=== PATIENT | male | born 1995 | race Caucasian/White ===

== ENCOUNTER 2024-02-27 09:43 | Emergency (ER) | payer BC, SELFPAY ==
[2024-02-27 09:46] VITALS: BP 150/93
[2024-02-27 10:15] VITALS: BMI 28.7
[2024-02-27] MEDS: TORADOL 30 MG IM (10:39)
--- NOTE | 2024-02-27 11:07 | ED.GENMED ---
History of Present Illness
General
Chief Complaint: Back Pain
Source: patient and spouse
Exam Limitations: none
Time Seen by Provider: 02/27/24 10:16
Nursing documentation reviewed up to this point in time: agreed with
History of Present Illness
History of Present Illness:
28-year-old male without significant past medical history presenting to the emergency department with hip but of discomfort mainly to the left side rating to the left knee worse with movement and positioning worsening over the past 3 days. Seem to
be after he lifted a few days ago. Initially had discomfort to the right hip but then transferred to the left side. Tried resting for a few days without any improvement. He went to an urgent care and received Flexeril and a Medrol Dosepak
but has not had any significant improvement. Bowel or bladder dysfunction no fever no numbness or weakness.
Review of Systems
Review of Systems
Allergies reviewed?: Yes
All Other Systems: ROS reviewed and negative except as documented in HPI and ROS
Phy Exam
Physical Exam
Physical Exam:
GENERAL: Alert , in no apparent distress
EYE: pupils equal and reactive
NECK: Supple, no significant adenopathy.
ENT: o/p clr, mmm.
CARDIAC: Regular rate and rhythm .
LUNGS: Clear breath sounds bilaterally, no acute respiratory distress, no wheezes/rales/rhonchi
ABDOMEN: Soft, without focal tenderness, no r/g, no cvat
NEUROLOGICAL: Alert and oriented, no focal neuro deficits
SKIN: Warm and dry, skin intact.
MUSCULOSKELETAL: No edema, well perfused.
PSYCH: Normal and appropriate interaction.
Course
Orders/Labs/Results
Orders:
Orders
02/27/24 10:35
Ketorolac [Toradol] 30 mg IM NOW STA
Hip, Left 2-3 Views [CR Hip - LT w/wo Pel 2-3 Vw*] Urgent
Comment:
Reason For Exam: hip pain
Include a pelvis x-ray?: Yes
Lumbar Spine, 2 or 3 View [CR Lumbar Spine 2 Or 3 Views] Urgent
Comment:
Reason For Exam: low back hip pain
02/27/24 11:55
Oxycodone/Acetaminophen [Percocet 5/325] 2 tablet PO NOW STA
Vital Signs
Initial and Last Documented VS:
Initial Vital Signs
Temp Pulse Resp BP Pulse Ox
98.3 F 87 16 150/93 98
02/27/24 09:46 02/27/24 09:46 02/27/24 09:46 02/27/24 09:46 02/27/24 09:46
Last Documented Vital Signs
Temp Pulse Resp BP Pulse Ox
98.3 F 65 16 123/69 98
02/27/24 09:46 02/27/24 13:45 02/27/24 09:46 02/27/24 13:45 02/27/24 09:46
MDM/Problems Addressed
MDM/Problems Addressed:
28-year-old male presenting to the emergency department today with concerns of hip buttock discomfort mainly on the left side rating to the left knee. Currently on Flexeril and steroid pack for symptoms which has not been helpful. On arrival blood
pressure somewhat elevated but otherwise vital signs are normal. No reproducible discomfort to palpation but symptoms were reproduced with movement of the left hip. No pain to the back no redness or warmth no midline pain. There is radiation of
pain from the hip and buttock region to the left knee that seems to be consistent with likely radicular pain Possibly even piriformis syndrome. Patient felt much better after pain medications here otherwise will follow-up closely with orthopedics
as an outpatient. Return precautions given.
*Critical Care Note
Total Time (30-74mins, 75-104mins- exclusive of procedures): Not Applicable
ED Attending Note
-
Portions of this chart may have been created with voice recognition software.� Occasional wrong word or��sound alike� substitutions may have occurred due to the inherent limitations of voice recognition software.
Discharge Plan
Departure
Patient Disposition: Home (Routine Discharge)
Date of Disposition: 02/27/24
Time of Disposition: 13:40
Patient with high blood pressure during this ER visit?: No
Condition: Good
Covid-19: Not Applicable
Discharge Problem:
Acute hip pain
Instructions: Radiculopathy (DC)
Prescriptions:
New
oxycodone-acetaminophen [Endocet] 5-325 mg tablet
1 tab PO Q8H PRN (Reason: Pain) Qty: 7 0RF
Referrals:
Bao Hester MD [Active] - Follow up in 1 week
UNKNOWN - PT DOES,NOT KNOW [Family Provider] -
Activity Restrictions/Additional Instructions:
You came to the emergency department today with concerns of left-sided hip discomfort. Please take the prescribed occasions as needed and follow-up closely with orthopedics and your primary care doctor. Return to the emergency department any
worsening, new or concerning symptoms.
Interventions
Interventions:
*Risk Screen - Suicide Last Done: 02/27/24 09:46
*General Assessment Last Done: 02/27/24 09:46
*Neglect/Abuse Screening Last Done: 02/27/24 09:46
ED- Fall Risk Assessment Last Done: 02/27/24 10:16
*ED COVID-19 Vaccine History Last Done: 02/27/24 10:15
*Nursing Disposition Last Done: 02/27/24 13:45
ED-Musculoskeletal Assessment Last Done: 02/27/24 10:15
Discharge Date and Time
Discharge Date/Time: 02/27/24 13:46
Print Language: [place]
[2024-02-27] MEDS: PERCOCET 5/325 2 TABLET PO (12:14)
[2024-02-27 13:45] VITALS: BP 123/69
== END 2024-02-27 13:46 | disposition home or self-care (01) ==
LOC: EMR 09:43
PROVIDERS: EMERGENCY PHYSICIAN Emergency Medicine
DX: M25.552 Pain in left hip (principal); M79.605 Pain in left leg; M54.50 Low back pain, unspecified
CPT/HCPCS: 99284; 96372; 72100; 73502

== ENCOUNTER → 2024-11-12 13:05 | Outpatient (REF) | payer BC, SELFPAY | LOC: DHSLP 13:05 | PROVIDERS: ATTENDING PHYSICIAN Internal Medicine; FAMILY PHYSICIAN Student in an Organized Health Care Education/Training Program | DX: G47.30 Sleep apnea, unspecified (principal); R06.83 Snoring | CPT/HCPCS: 95800 ==